=== PATIENT | female | born 2000 | race Two or more races ===

== ENCOUNTER 2023-11-15 01:33 | Emergency (ER) | payer MEDICAID, OTHER ==
[~2023-11-15] VITALS: Ht 167.6 cm; Wt 62.3 kg
[2023-11-15] MEDS: ONDANSETRON ODT 4 MG TAB PO ONE (03:28)
[2023-11-15] MEDS ORDERED: ZOFR4T SL (04:35)
[2023-11-15 04:46] VITALS: BP 113/75; PULSE 100; RESP 16; TEMP 98.2; O2SAT 97
== END 2023-11-15 04:45 | disposition home or self-care (01) ==
LOC: ER 01:33
DX: K52.9 Noninfective gastroenteritis and colitis, unspecified (principal)
CPT/HCPCS: 99283; Q0162